=== PATIENT | female | born 1945 | race Caucasian/White ===

== ENCOUNTER 2024-06-15 06:09 | Emergency (ER) | payer MEDICARE, OTHER ==
[~2024-06-15] VITALS: Ht 160 cm; Wt 62.1 kg
[2024-06-15] MEDS ORDERED: LISI10TA29 PO (06:20)
[2024-06-15 06:46] LABS: BASOPHILS # (AUTO) 0.1 K/UL (0.0-0.2); BASOPHILS % (AUTO) 1.5 % (0.0-2.0); EOSINOPHILS # (AUTO) 0.1 K/uL (0.0-0.7); EOSINOPHILS % (AUTO) 2.4 % (0.0-7.0); HEMATOCRIT 38.1 % (31.2-41.9); HEMOGLOBIN 12.9 g/dL (10.9-14.3); LYMPHOCYTES # (AUTO) 1.7 K/uL (0.8-4.8); LYMPHOCYTES % (AUTO) 32.6 % (20.5-51.5); MEAN CORPUSCULAR HEMOGLOBIN 29.5 uug (24.7-32.8); MEAN CORPUSCULAR HGB CONC 34 g/dL (32.3-35.6); MONOCYTES # (AUTO) 0.5 K/uL (0.1-1.30); MONOCYTES % (AUTO) 9.9 % (0.0-11.0); NEUTROPHILS # (AUTO) 2.8 K/uL (1.8-8.9); NEUTROPHILS % (AUTO) 53.6 % (38.5-71.5); PLATELET COUNT (AUTO) 175 K/uL (179-408); RED BLOOD CELL COUNT(AUTO) 4.38 MIL/uL (3.63-4.92); RED CELL DISTRIBUTION WIDTH 13.4 % (12.3-17.7); WHITE BLOOD COUNT (AUTO) 5.2 K/uL (3.8-11.8)
[2024-06-15 06:50] LABS: DIFFERENTIAL COMMENT 1
[2024-06-15 06:55] LABS: CALCIUM 9.1 mg/dL (8.5-10.1); CARBON DIOXIDE 25 mmol/L (21-32); CHLORIDE 106 mmol/L (98-107); CREATININE 1.1 mg/dL (0.6-1.3); GLUCOSE 117 mg/dL (74-106); POTASSIUM 3.8 mmol/L (3.5-5.1); SODIUM SERUM 142 mmol/L (136-145); UREA NITROGEN, BLOOD 19 mg/dL (7-18)
[2024-06-15 07:07] LABS: ALANINE AMINOTRANSFERASE 16 U/L (14-59); ALBUMIN 3.9 g/dL (3.4-5.0); ALKALINE PHOSPHATASE 95 U/L (50-136); ASPARTATE AMINOTRANSFERASE 9 U/L (15-37); BILIRUBIN,TOTAL 0.5 mg/dL (0.2-1.0); MAGNESIUM 2.3 mg/dL (1.8-2.4); NT-PRO BNP 137 pg/mL (0-125)
[2024-06-15 07:08] LABS: THYROID STIMULATING HORMONE 2.104 mIU/mL (0.358-3.740)
[2024-06-15 07:40] VITALS: BP 152/78; O2SAT 95
== END 2024-06-15 07:48 | disposition home or self-care (01) ==
LOC: ER 06:19
DX: I49.1 Atrial premature depolarization (principal); I10 Essential (primary) hypertension; R06.00 Dyspnea, unspecified; Z79.899 Other long term (current) drug therapy
CPT/HCPCS: 36415; 71045; 83735; 84443; 84484; 85025; 93005; A4606; A4663